=== PATIENT | female | born 1945 | race Caucasian/White ===

== ENCOUNTER 2017-11-03 12:31 | Outpatient (CLI) | payer MEDICARE, BC ==
[~2017-11-03 12:31] MED LIST: ACET325T55 PO; CALC500T11 PO; CYAN-19 PO; IBUP-2264 PO; LACT1CAP73 PO; OMEG1CAP46 PO; POLY119P2 PO; PROP10TA10 PO; RANI-366 PO; [UNRECOGNIZED DRUG - OTHER] PO
== END 2017-11-03 23:59 | disposition home or self-care (01) ==
LOC: VAS 12:31
PROVIDERS: ATTEND Family Medicine
DX: M79.605 Pain in left leg (principal); I10 Essential (primary) hypertension
CPT/HCPCS: 93971

== ENCOUNTER 2018-05-12 05:24 | Inpatient (IN) | payer MEDICARE, BC ==
[2018-05-05 11:23] LABS: CLARITY,URINE CLEAR (Clear); COLOR,URINE STRAW (Yellow); GLUCOSE, URINE NEGATIVE (Neg); KETONES,URINE NEGATIVE (Neg); LEUKOCYTE ESTERASE ,URINE NEGATIVE (Neg); NITRITES, URINE NEGATIVE (Neg); OCCULT BLOOD,URINE NEGATIVE (Neg); PH,URINE 6.5 (4.8-8.0); PROTEIN,URINE NEGATIVE (Neg); UROBILINOGEN,URINE 0.2 E.U/dL (0.2-1.0)
[2018-05-05 11:24] LABS: BASOPHILS % (AUTO) 0.5 % (0-1); EOSINOPHILS % (AUTO) 0.7 % (0-6); LYMPHOCYTES # (AUTO) 1.3 X10'3 (1.1-4.8); LYMPHOCYTES % (AUTO) 26.9 % (21-51); MEAN CORPUSCULAR HEMOGLOBIN 28.4 PG (27.0-31.0); MEAN CORPUSCULAR HGB CONC 31.7 % (33.0-36.5); MEAN CORPUSCULAR VOLUME 89.6 FL (78-98); MEAN PLATELET VOLUME 8.9 FL (7.4-10.4); MONOCYTES # (AUTO) 0.3 X10'3 (0-0.9); MONOCYTES % (AUTO) 5.9 % (2-12); NEUTROPHILS # (AUTO) 3.2 X10'3 (1.8-7.7); PRE OP HEMATOCRIT 49.5 % (35.0-45.0); PRE OP HEMOGLOBIN 15.7 g/dL (12.0-16.0); PRE OP PLATELET COUNT 227 X10'3 (140-440); RED BLOOD COUNT 5.53 X10'6 (4.20-5.60); RED CELL DISTRIBUTION WIDTH 12.5 % (11.5-14.5)
[2018-05-05 11:28] LABS: UA COLLECTION TYPE VOIDED
[2018-05-05 11:46] LABS: ALBUMIN 4.3 G/DL (3.4-5.0); ALBUMIN/GLOBULIN RATIO 1.3 (1.1-1.5); ALKALINE PHOSPHATASE 85 IU/L (46-116); BLOOD UREA NITROGEN 13 MG/DL (7-18); CALCIUM 9.8 MG/DL (8.5-10.1); CHLORIDE 103 MMOL/L (99-107); CREATININE 0.81 MG/DL (0.40-0.90); PRE OP ALT 28 U/L (30-65); PRE OP ANION GAP 9 (8-16); PRE OP AST 12 U/L (10-37); PRE OP BILIRUB, TOTAL 0.9 MG/DL (0.0-1.0); PRE OP GLUCOSE 102 MG/DL (70-104); PRE OP POTASSIUM 3.9 MMOL/L (3.4-5.1); PRE OP SODIUM 141 MMOL/L (135-145); TOTAL CARBON DIOXIDE 28.9 MMOL/L (24-32); TOTAL PROTEIN 7.5 G/DL (6.4-8.2); eGFR 70 ML/MIN
[~2018-05-12] VITALS: Ht 170.2 cm; Wt 70.3 kg
[2018-05-12] VITALS (20 sets, daily range): BP systolic 90–125; BP diastolic 40–77
[~2018-05-12 05:24] MED LIST changes: -CALC500T11 PO
[2018-05-12] MEDS ORDERED: CLINDAmcin 900mg/NS 50ml IVPB 50 ML IV ONE (05:30)
[2018-05-12] MEDS ORDERED: DOCUMENT DATE & TIME OF BETA-BLOCKER PO ONE (05:30)
[2018-05-12] MEDS ORDERED: famotidine 20mg tablet PO ONE (05:30)
[2018-05-12] MEDS ORDERED: LIDOcaine 1% (10mg/ml) 2ml vial ONE (05:50)
[2018-05-12] MEDS: ringers solution, lacted 1,000 ML IV SCH ×2 (06:09→21:27)
[2018-05-12] MEDS ORDERED: BUPIVAcaine/PF 2.5mg/ml (0.25%) 10ml vial ONE (06:57)
[2018-05-12] MEDS ORDERED: rocuronium 10mg/ml inj IV ONE ×2 (07:24→07:38)
[2018-05-12] MEDS ORDERED: sevoflurane 250ml liquid IH ONE (07:24)
[2018-05-12] MEDS ORDERED: fentaNYL/PF 50MCG/1 ML 2ML syringe ONE ×2 (07:29→10:22)
[2018-05-12] MEDS ORDERED: midazolam 2 mg/2 ml injection ONE (07:29)
[2018-05-12] MEDS ORDERED: propofol inj 20 ML IV ONE (07:37)
[2018-05-12] MEDS ORDERED: dexamethasone sod phosphate 4mg/ml inj. ONE (07:46)
[2018-05-12] MEDS: ketorolac tromethamine 15mg/ml inj. IM SCH ×3 (08:00→20:00)
[2018-05-12] MEDS ORDERED: ketorolac trometh. 30mg/ml inj. IV ONE (08:20)
[2018-05-12] MEDS ORDERED: hydrALAZINE 20mg/ml inj. IV PRN (08:20)
[2018-05-12] MEDS ORDERED: HYDROmorphone inj. 0.5 MG/0.5 ML DISP.SYRIN IV PRN ×2 (08:20)
[2018-05-12] MEDS ORDERED: acetaminophen 1,000mg/100ml IV 100 ML IV PRN (08:20)
[2018-05-12] MEDS ORDERED: ondansetron/PF 4mg/2ml inj IV PRN (08:20)
[2018-05-12] MEDS ORDERED: ringers solution, lacted 1,000 ML IV SCH (08:20)
[2018-05-12] MEDS ORDERED: proCHLORperazine 10 MG/2 ml inj IV PRN (08:20)
[2018-05-12] MEDS ORDERED: labetalol 20mg/4ml (5mg/ml) syringe IV PRN (08:20)
[2018-05-12] MEDS ORDERED: meperidine/PF 25mg/ml syringe IV PRN (08:20)
[2018-05-12] MEDS ORDERED: heparin 10,000 units/1 ML INJ ONE (09:30)
[2018-05-12] MEDS ORDERED: ondansetron/PF 4mg/2ml inj ONE (09:39)
[2018-05-12] MEDS ORDERED: acetaminophen 1,000mg/100ml IV 100 ML IV ONE (09:43)
[2018-05-12] MEDS ORDERED: neostigmine methylsulfate 1 MG/ML 10ml vial ONE (10:33)
[2018-05-12] MEDS ORDERED: ketorolac trometh. 30mg/ml inj. ONE (10:34)
[2018-05-12] MEDS ORDERED: glycopyrrolate 0.2mg/ml inj ONE (10:34)
--- NOTE | 2018-05-12 10:42 | NUR ---
Received from OR via SURGICAL BED , accompanied by Anesthesiologist ELIJAH and report given by Anesthesiolgist. PATIENT WITH 20 G PIV IN RIGHT HAND RUNNING LR AT 100. 6 ABDOMINAL LAP SITES WITH SMALL SPOTS OF BLEEDING FROM LOCAL ANESTHETIC SITES. CLEANED AND DRESSED. SCDS DONNED. MALONEY CATHETER PRESENT WITH CLEAR YELLOW URINE IN TUBING AND ATRIUM. VSS AT THIS TIME. Addendum: 05/12/18 at 1053 by Benjamin Castelan RN, RN Amended: Links added.
[2018-05-12] MEDS ORDERED: [UNRECOGNIZED DRUG - OTHER] PO PRN (11:15)
[2018-05-12] MEDS ORDERED: ibuprofen 200mg tablet PO PRN (11:15)
--- NOTE | 2018-05-12 12:12 | NUR ---
Report called to receiving nurse. Transferred via SURGICAL BED WITH 2 BAGS OF Belongings AND A PAIR OF GLASSES IN SPOUSES POSESSION. Special Issues communicated to receiving nurse FABBY MENDOZA.VSS. BED LOW. CALL LIGHT PRESENT. PAIN AT AN TOLERABLE LEVEL. SCDS ON. URINE STILL CDI ARE ABDOMINAL LAP BANDAIDS. HAS MET ALL CRITERIA FOR TRANSFER TO THE FLOOR. Addendum: 05/12/18 at 1243 by Benjamin Castelan RN, RN Amended: Links added.
--- NOTE | 2018-05-12 12:26 | NUR ---
Received report from Benjamin RN in Recovery, had opportunity to ask questions and awaiting patient's arrival in room 346B.
--- NOTE | 2018-05-12 12:45 | NUR ---
Patient arrived to the floor with , Kamran, at bedside. VSS and post-op vitals started. BP 114/57, HR 89, O2 saturation 97% on 3L O2. Afebrile. no distress noted, patient states pain is 5, at comfortable level for her. will continue to monitor.
--- NOTE | 2018-05-12 18:36 | NUR ---
Problems reprioritized. Patient report given, questions answered & plan of care reviewed with REJI Nielsen.
[2018-05-12] MEDS: famotidine 20mg tablet PO SCH (20:00)
[2018-05-12] MEDS: propranolol 10mg tablet PO SCH (20:46)
[2018-05-12] MEDS: acetaminophen 325mg tablet PO PRN (20:46)
--- NOTE | 2018-05-12 21:39 | NUR ---
Patient in room [facility]. I have received report from REJI Aguila and had the opportunity to ask questions and assume patient care. Addendum: 05/12/18 at 2142 by Oriana Marshall RN Amended: Links added.
[2018-05-13] MEDS: acetaminophen 325mg tablet PO PRN (01:36)
[2018-05-13] MEDS: ketorolac tromethamine 15mg/ml inj. IM SCH ×4 (02:00→20:00)
--- NOTE | 2018-05-13 05:55 | NUR ---
removed fc. pt. tolerated procedure well. Addendum: 05/13/18 at 0556 by Oriana Marshall RN Amended: Links added.
--- NOTE | 2018-05-13 06:31 | NUR ---
Problems reprioritized. Patient report given, questions answered & plan of care reviewed with REJI Pastor. Addendum: 05/13/18 at 0632 by Oriana Marshall RN Amended: Links added.
--- NOTE | 2018-05-13 06:31 | NUR ---
Problems reprioritized. Patient report given, questions answered & plan of care reviewed with REJI Pastor. Addendum: 05/13/18 at 0631 by Oriana Marshall RN Amended: Links added.
[2018-05-13 07:00] VITALS: BP 91/58
[2018-05-13] MEDS: famotidine 20mg tablet PO SCH (08:00)
[2018-05-13] MEDS: cyanocobalamin 500mcg tablet PO SCH (08:00)
[2018-05-13] MEDS: lactobacillus rhamnosus 10,000 MMU CELLS/CAPSULE PO SCH (09:01)
[2018-05-13] MEDS: OMEGA-3/DHA/EPA/FISH OIL 1 EACH CAPSULE.DR PO SCH (09:01)
[2018-05-13] MEDS: polyethylene glycol 3350 17gm powd pack PO SCH (09:03)
[2018-05-13 11:00] VITALS: BP 138/47
[2018-05-13] MEDS: RANITIDINE 150 MG TAB PO SCH ×2 (14:16→20:24)
[2018-05-13 18:00] VITALS: BP 114/50
--- NOTE | 2018-05-13 18:00 | NUR ---
Patient in room [facility]. I have received report from Darby MENDOZA and had the opportunity to ask questions and assume patient care.
[2018-05-13 20:24] VITALS: BP 110/54
[2018-05-13] MEDS: propranolol 10mg tablet PO SCH (20:24)
[2018-05-14] VITALS: BP 105/52
[2018-05-14] MEDS: ketorolac tromethamine 15mg/ml inj. IM SCH ×2 (02:00→07:28)
[2018-05-14] MEDS: acetaminophen 325mg tablet PO PRN (05:54)
--- NOTE | 2018-05-14 06:28 | NUR ---
Patient in room [facility]. I have received report from REJI VAUGHN and had the opportunity to ask questions and assume patient care.
--- NOTE | 2018-05-14 06:36 | NUR ---
Problems reprioritized. Patient report given, questions answered & plan of care reviewed with Randall MENDOZA.
[2018-05-14 07:18] VITALS: BP 116/55
[2018-05-14] MEDS: OMEGA-3/DHA/EPA/FISH OIL 1 EACH CAPSULE.DR PO SCH (07:20)
[2018-05-14] MEDS: RANITIDINE 150 MG TAB PO SCH (07:21)
[2018-05-14] MEDS: cyanocobalamin 500mcg tablet PO SCH (07:25)
[2018-05-14] MEDS: lactobacillus rhamnosus 10,000 MMU CELLS/CAPSULE PO SCH (07:25)
[2018-05-14] MEDS: polyethylene glycol 3350 17gm powd pack PO SCH (07:26)
[2018-05-14 11:38] VITALS: BP 116/61
--- NOTE | 2018-05-14 13:06 | NUR ---
discussed with patient discharge instructions. patient alert and oriented and verbalizes understanding of discharge instructions. patient has all her personal belongings ready for dc. she is waiting for her spouse for transportation.
== END 2018-05-14 13:41 | disposition home or self-care (01) | DRG 336 ==
LOC: PAS 05:24 → SUR 3N 07:47 → PAS 05-14 13:41 → SUR 3N 05-14 13:41
PROVIDERS: ADMIT Surgery; ATTEND Surgery
PROC: 0WUF4JZ Supplement Abdominal Wall with Synthetic Substitute, Percutaneous Endoscopic Approach (ICD-10-PCS; 2018-05-12)
PROC: 0YU54JZ Supplement Right Inguinal Region with Synthetic Substitute, Percutaneous Endoscopic Approach (ICD-10-PCS; 2018-05-12)
PROC: 0DN84ZZ Release Small Intestine, Percutaneous Endoscopic Approach (ICD-10-PCS; 2018-05-12)
PROC: 0DN84ZZ Release Small Intestine, Percutaneous Endoscopic Approach (ICD-10-PCS; 2018-05-12)
PROC: 0DNW4ZZ Release Peritoneum, Percutaneous Endoscopic Approach (ICD-10-PCS; principal; 2018-05-12 07:24)
DX: K40.90 Unilateral inguinal hernia, without obstruction or gangrene, not specified as recurrent (principal); K43.0 Incisional hernia with obstruction, without gangrene; K66.0 Peritoneal adhesions (postprocedural) (postinfection); I49.9 Cardiac arrhythmia, unspecified; G43.909 Migraine, unspecified, not intractable, without status migrainosus; Z90.49 Acquired absence of other specified parts of digestive tract; Z90.710 Acquired absence of both cervix and uterus; Z79.899 Other long term (current) drug therapy; Z88.0 Allergy status to penicillin; Z88.8 Allergy status to other drugs, medicaments and biological substances; Z88.1 Allergy status to other antibiotic agents; Z91.02 Food additives allergy status; Z82.49 Family history of ischemic heart disease and other diseases of the circulatory system; Z80.9 Family history of malignant neoplasm, unspecified
CPT/HCPCS: 36415; 80053; 81003; 82948; 85025; 87070; 93005; A7000; C1713; C1758; C1781; G0378; J0131; J0780; J1100; J1644; J1885; J2250; J2405; J2704; J2710; J3010; J3490; J7120

== ENCOUNTER 2019-05-18 05:33 | Day surgery (SDC) | payer MEDICARE, BC ==
[2019-05-13 14:23] LABS: CLARITY,URINE SLIGHTLY CLOUDY (Clear); COLOR,URINE YELLOW (Yellow); GLUCOSE, URINE NEGATIVE (Neg); KETONES,URINE NEGATIVE (Neg); LEUKOCYTE ESTERASE ,URINE SMALL (Neg); NITRITES, URINE NEGATIVE (Neg); OCCULT BLOOD,URINE NEGATIVE (Neg); PH,URINE 5.5 (4.8-8.0); PROTEIN,URINE NEGATIVE (Neg); UROBILINOGEN,URINE 0.2 E.U/dL (0.2-1.0)
[2019-05-13 14:39] LABS: BASOPHILS % (AUTO) 0.3 % (0-1); EOSINOPHILS # (AUTO) 0.1 X10'3 (0-0.9); MEAN PLATELET VOLUME 8.8 FL (7.4-10.4); MONOCYTES # (AUTO) 0.3 X10'3 (0-0.9); PRE OP PLATELET COUNT 223 X10'3 (140-440)
[2019-05-13 14:41] LABS: LYMPHOCYTES # (AUTO) 1.5 X10'3 (1.1-4.8); LYMPHOCYTES % (AUTO) 26.9 % (21-51); MEAN CORPUSCULAR HEMOGLOBIN 29.7 PG (27.0-31.0); MEAN CORPUSCULAR HGB CONC 34.1 g/dL (33.0-36.5); MEAN CORPUSCULAR VOLUME 87.1 FL (78-98); MONOCYTES % (AUTO) 6.1 % (2-12); NEUTROPHILS # (AUTO) 3.7 X10'3 (1.8-7.7); NEUTROPHILS % (AUTO) 65.7 % (42-75); PRE OP HEMATOCRIT 46.8 % (35.0-45.0); RED BLOOD COUNT 5.37 X10'6 (4.20-5.60)
[2019-05-13 14:42] LABS: UA COLLECTION TYPE CLN CATCH MIDSTREAM
[2019-05-13 14:43] LABS: BACTERIA,URINE FEW /HPF (Neg); MUCUS STRANDS FEW /LPF (Neg); RBC,URINE 0-2 /HPF (0-2); SQUAMOUS EPITHELIAL CELL,UR FEW /LPF (FEW); WBC,URINE 0-4 /HPF (0-4)
[2019-05-13 14:48] LABS: ALBUMIN 4.4 G/DL (3.4-5.0); ALBUMIN/GLOBULIN RATIO 1.4 (1.1-1.5); ALKALINE PHOSPHATASE 96 IU/L (46-116); BLOOD UREA NITROGEN 14 MG/DL (7-18); BUN/CREATININE RATIO 14.9 (6.6-38.0); CALCIUM 10.2 MG/DL (8.5-10.1); CHLORIDE 103 MMOL/L (99-107); CREATININE 0.94 MG/DL (0.40-0.90); PRE OP ALT 27 U/L (30-65); PRE OP ANION GAP 5 (8-16); PRE OP AST 15 U/L (10-37); PRE OP BILIRUB, TOTAL 0.8 MG/DL (0.0-1.0); PRE OP GLUCOSE 142 MG/DL (70-104); PRE OP POTASSIUM 3.6 MMOL/L (3.4-5.1); PRE OP SODIUM 141 MMOL/L (135-145); TOTAL CARBON DIOXIDE 32.7 MMOL/L (24-32); TOTAL PROTEIN 7.5 G/DL (6.4-8.2); eGFR 58 ML/MIN
[2019-05-13 15:00] LABS: LARGE PLATELETS FEW; PLATELET ESTIMATE NORMAL
[~2019-05-18] VITALS: Ht 171.4 cm; Wt 71.7 kg
[2019-05-18] VITALS (9 sets, daily range): BP systolic 116–141; BP diastolic 43–69
[~2019-05-18 05:33] MED LIST changes: -ACET325T55 PO; +CLINDAmcin 900mg/NS 50ml IVPB 50 ML IV ONE; -CYAN-19 PO; +CYAN-51 PO; +DOCUMENT DATE & TIME OF BETA-BLOCKER PO ONE; -IBUP-2264 PO; -POLY119P2 PO; -RANI-366 PO; -[UNRECOGNIZED DRUG - OTHER] PO; +famotidine 10mg tablet PO ONE; +ringers solution, lacted 1,000 ML IV SCH
[2019-05-18] MEDS ORDERED: LIDOcaine 1% (10mg/ml) 2ml vial ONE ×2 (06:09→07:41)
[2019-05-18] MEDS ORDERED: BUPIVAcaine/PF 2.5 mg/ml (0.25%) 30ml vial ONE (07:14)
[2019-05-18] MEDS ORDERED: midazolam 2 mg/2 ml injection ONE (07:25)
[2019-05-18] MEDS ORDERED: fentaNYL/PF 50MCG/1 ML 2ML syringe ONE (07:25)
[2019-05-18] MEDS ORDERED: propofol inj 20 ML IV ONE (07:25)
[2019-05-18] MEDS ORDERED: ringers solution, lacted 1,000 ML IV SCH (07:36)
[2019-05-18] MEDS ORDERED: meperidine/PF 25mg/ml syringe IV PRN ×3 (07:40)
[2019-05-18] MEDS ORDERED: proCHLORperazine 10 MG/2 ml inj IV PRN (07:40)
[2019-05-18] MEDS ORDERED: morphine 4 MG/ML inj SYRINge IV PRN ×2 (07:40)
[2019-05-18] MEDS ORDERED: ondansetron/PF 4mg/2ml inj IV PRN (07:40)
[2019-05-18] MEDS ORDERED: ePHEDrine 50MG/ML INJ. ONE (07:41)
[2019-05-18] MEDS ORDERED: sevoflurane 250ml liquid IH ONE (07:41)
[2019-05-18] MEDS ORDERED: ondansetron/PF 4mg/2ml inj ONE (08:11)
[2019-05-18] MEDS ORDERED: acetaminophen 1,000mg/100ml IV 100 ML IV ONE (08:11)
[2019-05-18] MEDS ORDERED: dexamethasone sod phosphate 4mg/ml inj. ONE (08:11)
--- NOTE | 2019-05-18 09:26 | NUR ---
Received from OR via [facility], accompanied by Anesthesiologist DR NAVA and report given by Anesthesiolgist. PT AWAKE AND ALERT, C/O MILD PAIN RIGHT BUTTOCK.ISLAND DRESSING DRY AND INTACT. PIV AIDA PATENT. MOVES ALL EXTREMITIES, ABD SOFT, SKIN PINK AND WARM
[2019-05-18] MEDS ORDERED: ketorolac tromethamine 15mg/ml inj. IV ONE (10:05)
--- NOTE | 2019-05-18 10:46 | NUR ---
PT AWAKE AND ALERT, SKIN WARM AND DRY, DRESSING INTACT WITH SMALL AMOUNT OF SS DRAINAGE, DRAIN INTACT WITH MINIMAL DRAINAGE. PIV D/CD CATH TIP INTACT. TOLERATING FLUIDS WELL, PAIN LEVEL DECREASED TO 5.PT AND GIVEN DISCHARGE INSTRUCTIONS, STATED UNDERSTANDING, TO CAR IN WHEELCHAIR.
== END 2019-05-18 10:46 | disposition home or self-care (01) ==
LOC: PAS 05:33
PROVIDERS: ATTEND Surgery
DX: M79.89 Other specified soft tissue disorders (principal); C49.21 Malignant neoplasm of connective and soft tissue of right lower limb, including hip; G43.909 Migraine, unspecified, not intractable, without status migrainosus; E78.5 Hyperlipidemia, unspecified; K21.9 Gastro-esophageal reflux disease without esophagitis; M13.88 Other specified arthritis, other site; H40.9 Unspecified glaucoma; I47.1 Supraventricular tachycardia; Z87.11 Personal history of peptic ulcer disease; Z98.890 Other specified postprocedural states; Z88.0 Allergy status to penicillin; Z88.8 Allergy status to other drugs, medicaments and biological substances; Z91.013 Allergy to seafood; Z79.899 Other long term (current) drug therapy
CPT/HCPCS: 27043; 27045; 36415; 80053; 81001; 82948; 85025; 87088; J0131; J1100; J1885; J2001; J2250; J2405; J2704; J3010; J3490; J7120; 88304; 88305; A4215; A4618; A7000

== ENCOUNTER 2020-11-04 09:16 | Emergency (ER) | payer MEDICARE, BC ==
[~2020-11-04] VITALS: Ht 170.2 cm; Wt 69.9 kg
[~2020-11-04 09:16] MED LIST changes: -CLINDAmcin 900mg/NS 50ml IVPB 50 ML IV ONE; -DOCUMENT DATE & TIME OF BETA-BLOCKER PO ONE; -famotidine 10mg tablet PO ONE; -ringers solution, lacted 1,000 ML IV SCH
[2020-11-04] MEDS ORDERED: OXYM30SP67 (10:07)
[2020-11-04 10:09] VITALS: BP 115/60
[2020-11-04] MEDS ORDERED: ondansetron 4mg rapidly disintigrating tab PO ONE (10:10)
== END 2020-11-04 10:35 | disposition home or self-care (01) ==
LOC: ER 09:17
DX: R04.0 Epistaxis (principal); G43.909 Migraine, unspecified, not intractable, without status migrainosus; Z87.11 Personal history of peptic ulcer disease; Z85.9 Personal history of malignant neoplasm, unspecified; Z98.890 Other specified postprocedural states; Z90.710 Acquired absence of both cervix and uterus; Z88.0 Allergy status to penicillin; Z88.2 Allergy status to sulfonamides; Z88.1 Allergy status to other antibiotic agents; Z88.8 Allergy status to other drugs, medicaments and biological substances; Z79.899 Other long term (current) drug therapy
CPT/HCPCS: 99282; 99283

== ENCOUNTER 2021-03-11 08:44 | Outpatient (CLI) | payer MEDICARE, BC ==
[~2021-03-11 08:44] MED LIST changes: +ACET-890 PO; +CHOL100025 PO; +FAMO20TA8 PO; -LACT1CAP73 PO; +LEVO500T90 PO; +OSC500T PO; +POLY119P2 PO
== END 2021-03-11 23:59 | disposition home or self-care (01) ==
LOC: RAD 08:44
PROVIDERS: ATTEND Physician Assistant Medical
DX: J90 Pleural effusion, not elsewhere classified (principal)
CPT/HCPCS: 71045